=== PATIENT | female | born 1985 | race Caucasian/White ===

== ENCOUNTER 2017-07-09 08:19 | Outpatient (CLI) | payer OTHER ==
[~2017-07-09 08:19] MED LIST: LOVENOX40 MG/0.4
== END 2017-07-09 10:15 | disposition home or self-care (01) ==
LOC: NUCLEAR 08:19
DX: C56.9 Malignant neoplasm of unspecified ovary (principal)
CPT/HCPCS: 78815; A9552

== ENCOUNTER 2017-12-28 07:59 | Outpatient (CLI) | payer OTHER | END 2017-12-28 15:50 | disposition home or self-care (01) | LOC: MRI 07:59 | DX: C54.9 Malignant neoplasm of corpus uteri, unspecified (principal) | CPT/HCPCS: 72196; 74182 ==

== ENCOUNTER 2018-06-28 11:30 | Outpatient (CLI) | payer OTHER | END 2018-06-28 17:00 | disposition home or self-care (01) | LOC: TOM 11:30 | DX: C56.1 Malignant neoplasm of right ovary (principal); C56.2 Malignant neoplasm of left ovary ==

== ENCOUNTER → 2018-06-28 | Outpatient (CLI) | payer OTHER | END | disposition home or self-care (01) | LOC: LAB 10:32 | DX: C56.9 Malignant neoplasm of unspecified ovary (principal); Z51.81 Encounter for therapeutic drug level monitoring ==

== ENCOUNTER 2019-01-13 16:03 | Outpatient (CLI) | payer OTHER | END 2019-01-13 16:10 | disposition home or self-care (01) | LOC: NUCLEAR 16:03 | DX: C56.9 Malignant neoplasm of unspecified ovary (principal) | CPT/HCPCS: 78815; A9552 ==

== ENCOUNTER 2019-09-11 10:24 | Outpatient (CLI) | payer OTHER | END 2019-09-11 10:36 | disposition home or self-care (01) | LOC: MRI 10:24 | DX: C56.9 Malignant neoplasm of unspecified ovary (principal) | CPT/HCPCS: 72196; 74182 ==

== ENCOUNTER 2020-07-11 09:05 | Outpatient (CLI) | payer OTHER | END 2020-07-11 14:12 | disposition home or self-care (01) | LOC: NUCLEAR 09:05 | PROVIDERS: ATTEND Obstetrics & Gynecology | DX: C56.9 Malignant neoplasm of unspecified ovary (principal) | CPT/HCPCS: 78814; A9552 ==

== ENCOUNTER 2020-07-15 07:13 | Outpatient (CLI) | payer OTHER | END 2020-07-15 07:26 | disposition home or self-care (01) | LOC: MRI 07:13 | PROVIDERS: ATTEND Surgery Plastic and Reconstructive Surgery | DX: N94.89 Other specified conditions associated with female genital organs and menstrual cycle (principal) | CPT/HCPCS: 72196 ==

== ENCOUNTER 2020-10-02 08:20 | Outpatient (CLI) | payer OTHER | END 2020-10-02 10:18 | disposition home or self-care (01) | LOC: MRI 08:20 | PROVIDERS: ATTEND Obstetrics & Gynecology Gynecologic Oncology | DX: R10.84 Generalized abdominal pain (principal) | CPT/HCPCS: 72197; 74183 ==

== ENCOUNTER 2020-10-17 08:33 | Outpatient (CLI) | payer OTHER | END 2020-10-17 08:35 | disposition home or self-care (01) | LOC: NUCLEAR 08:33 | PROVIDERS: ATTEND Internal Medicine Hematology & Oncology | DX: C56.1 Malignant neoplasm of right ovary (principal) | CPT/HCPCS: 78815; A9552 ==

== ENCOUNTER 2021-03-27 10:12 | Outpatient (CLI) | payer OTHER | END 2021-03-27 10:20 | disposition home or self-care (01) | LOC: MRI 10:12 | PROVIDERS: ATTEND Internal Medicine Hematology & Oncology | DX: C56.9 Malignant neoplasm of unspecified ovary (principal); N94.89 Other specified conditions associated with female genital organs and menstrual cycle | CPT/HCPCS: 72196; 74182 ==

== ENCOUNTER 2021-05-30 07:47 | Outpatient (CLI) | payer OTHER | END 2021-05-30 08:59 | disposition home or self-care (01) | LOC: NUCLEAR 07:47 | PROVIDERS: ATTEND Internal Medicine Hematology & Oncology | DX: C56.1 Malignant neoplasm of right ovary (principal) | CPT/HCPCS: 78815; A9552 ==

== ENCOUNTER 2021-10-31 08:27 | Outpatient (CLI) | payer OTHER | END 2021-10-31 08:35 | disposition home or self-care (01) | LOC: MRI 08:27 | PROVIDERS: ATTEND Obstetrics & Gynecology | DX: C56.9 Malignant neoplasm of unspecified ovary (principal) | CPT/HCPCS: 72196; 74182 ==

== ENCOUNTER 2021-12-11 06:00 | Day surgery (SDC) | payer OTHER ==
[~2021-12-11] VITALS: Ht 170.2 cm; Wt 65.8 kg
[~2021-12-11 06:00] MED LIST changes: +FEMARA2.5 MG PO
== END 2021-12-11 09:25 | disposition home or self-care (01) ==
LOC: CIR.AMB 06:00
PROVIDERS: ATTEND Obstetrics & Gynecology Gynecologic Oncology
DX: C56.1 Malignant neoplasm of right ovary (principal); Z86.16 Personal history of COVID-19; Z92.21 Personal history of antineoplastic chemotherapy

== ENCOUNTER 2022-07-17 08:03 | Outpatient (CLI) | payer OTHER | END 2022-07-17 08:25 | disposition home or self-care (01) | LOC: MRI 08:03 | PROVIDERS: ATTEND Orthopaedic Surgery | DX: C56.9 Malignant neoplasm of unspecified ovary (principal) | CPT/HCPCS: 72197; 74183 ==

== ENCOUNTER 2022-07-23 06:00 | Day surgery (SDC) | payer OTHER ==
[~2022-07-23] VITALS: Ht 170.2 cm; Wt 68.0 kg
== END 2022-07-23 09:45 | disposition home or self-care (01) ==
LOC: CIR.AMB 06:00 → O/R 06:00 → SURH 06:00 → CIR.AMB 09:45 → O/R 09:45 → SURH 16:57 → EDSTATUS 18:15
PROVIDERS: ATTEND Obstetrics & Gynecology Gynecologic Oncology
DX: C56.9 Malignant neoplasm of unspecified ovary (principal); R58 Hemorrhage, not elsewhere classified; Z20.822 Contact with and (suspected) exposure to COVID-19

== ENCOUNTER 2023-03-05 09:47 | Outpatient (CLI) | payer OTHER | END 2023-03-05 10:04 | disposition home or self-care (01) | LOC: MRI 09:47 | DX: C56.9 Malignant neoplasm of unspecified ovary (principal) | CPT/HCPCS: 72197; 74183 ==

== ENCOUNTER 2023-03-09 07:42 | Outpatient (CLI) | payer OTHER | END 2023-03-09 07:45 | disposition home or self-care (01) | LOC: NUCLEAR 07:42 | PROVIDERS: ATTEND Obstetrics & Gynecology Gynecologic Oncology | DX: C56.1 Malignant neoplasm of right ovary (principal) ==

== ENCOUNTER 2023-03-11 05:30 | Day surgery (SDC) | payer OTHER ==
[~2023-03-11] VITALS: Ht 170.2 cm; Wt 68.0 kg
[2023-03-11 11:09] LABS: HEMATOCRIT 36.2 % (36.0-45.00); HEMOGLOBIN 12.6 g/dL (12.0-15.00); MEAN CORPUSCULAR HEMOGLOBIN 32.1 pg (27.00-32.0); MEAN CORPUSCULAR HGB CONC 34.9 g/dl (32.0-36.0); PLATELET COUNT 186 K/uL (150-450); RED BLOOD COUNT 3.93 M/uL (4.00-6.00); RED CELL DISTRIBUTION WIDTH 12.5 % (11.5-14.5)
== END 2023-03-11 12:30 | disposition home or self-care (01) ==
LOC: SURH 05:30 → CIR.AMB 05:30 → O/R 05:30 → SURH 09:00 → EDSTATUS 09:00 → CIR.AMB 12:30 → O/R 12:30 → SURH 17:12
PROVIDERS: Obstetrics & Gynecology; ATTEND Obstetrics & Gynecology Gynecologic Oncology
DX: C56.1 Malignant neoplasm of right ovary (principal); C79.82 Secondary malignant neoplasm of genital organs; C78.7 Secondary malignant neoplasm of liver and intrahepatic bile duct; Z20.822 Contact with and (suspected) exposure to COVID-19

== ENCOUNTER 2023-06-29 09:41 | Inpatient (IN) | payer OTHER ==
[~2023-06-29] VITALS: Ht 170.2 cm; Wt 68.0 kg
[2023-06-29 10:57] LABS: HEMOGLOBIN 13.5 g/dL (12.0-15.00); MEAN CELL VOLUME 93.2 fL (80.00-100.00); MEAN CORPUSCULAR HEMOGLOBIN 32.2 pg (27.00-32.0); MEAN CORPUSCULAR HGB CONC 34.5 g/dl (32.0-36.0); PLATELET COUNT 222 K/uL (150-450); RED BLOOD COUNT 4.19 M/uL (4.00-6.00)
[2023-06-29 10:58] LABS: URINE APPEARANCE Clear; URINE BILIRRUBIN Negative (NEGATIVE); URINE BLOOD Negative; URINE COLOR Yellow; URINE GLUCOSE Negative (NEGATIVE); URINE LEUKOCYTE Negative; URINE NITRATE Negative; URINE PROTEIN Negative (NEGATIVE); URINE UROBILINOGEN 0.2 E.U./dl
[2023-06-29 11:05] LABS: URINE EPITHELIAL CELLS 2.6 uL (0.0-38.8); URINE WBC 3.7 uL (0.0-23.2)
[2023-06-29 11:44] LABS: ALBUMIN 3.7 gm/dL (3.4-5.0); BILIRUBIN TOTAL 0.54 mg/dL (0.3-1.2); CALCIUM 9.2 mg/dL (8.5-10.1); CREATININE SERUM 0.88 mg/dL (0.55-1.02); GFR 72.3; GLOBULINA 2.9 G/DL (2.4-3.5); POTASSIUM 5.08 mEq/L (3.5-5.1); TOTAL PROTEIN 6.6 gm/dL (6.4-8.2)
[2023-06-29 11:45] LABS: URINE RBC 0.4 uL (0.0-20.8)
[2023-06-29 11:52] LABS: INR 1.04; PARTIAL THROMBOPLASTIN TIME 28.8 SECONDS (22.0-34.0); PROTHROMBIN TIME 10.9 SECONDS (9.0-11.5)
[2023-07-01 10:48] LABS: HEMATOCRIT 34.7 % (36.0-45.00); HEMOGLOBIN 12.5 g/dL (12.0-15.00); MEAN CELL VOLUME 89.9 fL (80.00-100.00); MEAN CORPUSCULAR HEMOGLOBIN 32.3 pg (27.00-32.0); PLATELET COUNT 187 K/uL (150-450); RED BLOOD COUNT 3.86 M/uL (4.00-6.00)
[2023-07-01 11:11] LABS: CALCIUM 8.9 mg/dL (8.5-10.1); CREATININE SERUM 1.03 mg/dL (0.55-1.02); GFR 60.29; POTASSIUM 4.39 mEq/L (3.5-5.1)
[2023-07-02 02:02] LABS: HEMATOCRIT 31.3 % (36.0-45.00); HEMOGLOBIN 11.1 g/dL (12.0-15.00); MEAN CELL VOLUME 91.4 fL (80.00-100.00); MEAN CORPUSCULAR HEMOGLOBIN 32.3 pg (27.00-32.0); MEAN CORPUSCULAR HGB CONC 35.3 g/dl (32.0-36.0); PLATELET COUNT 152 K/uL (150-450); RED BLOOD COUNT 3.43 M/uL (4.00-6.00); RED CELL DISTRIBUTION WIDTH 12.7 % (11.5-14.5)
[2023-07-02 02:25] LABS: CALCIUM 8.3 mg/dL (8.5-10.1); CREATININE SERUM 0.9 mg/dL (0.55-1.02); GFR 70.45; POTASSIUM 4.07 mEq/L (3.5-5.1)
== END 2023-07-02 08:14 | disposition home or self-care (01) | DRG 406 ==
LOC: OB/GYN 07-01 06:00 → O/R 07-01 06:00 → OB/GYN 07-01 09:38
PROVIDERS: Obstetrics & Gynecology; ADMIT Obstetrics & Gynecology Gynecologic Oncology; ATTEND Obstetrics & Gynecology Gynecologic Oncology
PROC: 0FT Hepatobiliary System and Pancreas, Resection (ICD-10-PCS; 2023-07-01)
PROC: 0DBW4ZZ Excision of Peritoneum, Percutaneous Endoscopic Approach (ICD-10-PCS; principal; 2023-07-01 19:15)
DX: C22.9 Malignant neoplasm of liver, not specified as primary or secondary (principal); C56.1 Malignant neoplasm of right ovary; Z20.822 Contact with and (suspected) exposure to COVID-19

== ENCOUNTER → 2024-04-19 | Outpatient (CLI) | payer OTHER ==
[~2024-04-19] MED LIST changes: +EXEMESTANE25 MG PO
== END | disposition home or self-care (01) ==
LOC: NUCLEAR 08:18
PROVIDERS: ATTEND Obstetrics & Gynecology
DX: C56.9 Malignant neoplasm of unspecified ovary (principal)

== ENCOUNTER 2024-04-25 06:00 | Day surgery (SDC) | payer OTHER ==
[2024-04-21 12:47] LABS: INR 1.07; PARTIAL THROMBOPLASTIN TIME 27.8 SECONDS (22.0-34.0); PROTHROMBIN TIME 11.6 SECONDS (9.0-11.5)
[2024-04-21 13:32] VITALS: BP 110/68
[2024-04-25] MEDS ORDERED: CEFAZOLIN SODIUM 1,000 MG VIAL IV ONE (10:00)
[2024-04-25] MEDS ORDERED: POVIDONE-IODINE 118 ML BOTT TOP ONE (10:00)
[2024-04-25] MEDS ORDERED: METRONIDAZOLE/SODIUM CHLORIDE 500 MG/100 ML PIGGYBACK IV ONE (10:00)
[2024-04-25] MEDS ORDERED: MORPHINE SULFATE 4 MG/ML VIAL IV ONE (12:05)
== END 2024-04-25 13:45 | disposition home or self-care (01) ==
LOC: CIR.AMB 06:00
PROVIDERS: Obstetrics & Gynecology; ATTEND Obstetrics & Gynecology Gynecologic Oncology
DX: C56.1 Malignant neoplasm of right ovary (principal); C78.5 Secondary malignant neoplasm of large intestine and rectum; C77.5 Secondary and unspecified malignant neoplasm of intrapelvic lymph nodes; C79.11 Secondary malignant neoplasm of bladder

== ENCOUNTER → 2024-10-11 07:16 | Outpatient (CLI) | payer OTHER ==
[~2024-10-11] VITALS: Ht 170.2 cm; Wt 69.4 kg
[~2024-10-11 07:16] MED LIST changes: +MEKINIST2 MG PO
[2024-10-11 08:15] VITALS: BP 91/62
== END | disposition home or self-care (01) ==
LOC: NUCLEAR 07:00
PROVIDERS: ATTEND Obstetrics & Gynecology
DX: C56.9 Malignant neoplasm of unspecified ovary (principal)

== ENCOUNTER 2025-02-16 07:24 | Outpatient (CLI) | payer OTHER | END 2025-02-16 07:25 | disposition home or self-care (01) | LOC: NUCLEAR 07:24 | DX: C56.9 Malignant neoplasm of unspecified ovary (principal) ==